=== PATIENT | male | born 1960 | race African-American/Black ===

== ENCOUNTER 2021-05-17 20:49 | Observation (INO) ==
[2021-05-17] MEDS ORDERED: MORPHINE 2 MG/1 ML SYRINGE IV STA (21:19)
[2021-05-17] MEDS ORDERED: ALUM/MAG/SIMETH/LIDO VISC 1:1 30 ML BOTTLE PO STA (21:19)
[2021-05-17] MEDS ORDERED: ONDANSETRON 4 MG/2 ML VIAL IV STA (21:19)
[2021-05-17] MEDS ORDERED: ASPIRIN 325 MG TABLET PO STA (21:19)
[2021-05-17] MEDS ORDERED: NITROGLYCERIN 2% OINT 1 INCH/GM PACK TOP STA (21:19)
[2021-05-17 21:25] LABS: Basophils % 0.5 % (0.0-0.8); Eosinophils # 0.2 10*3/uL (0.0-0.87); Eosinophils % 2.3 % (0.00-10.9); Hematocrit 48.2 VOL% (42.0-52.0); Hemoglobin 15.5 GM/DL (14.0-18.0); Immature Granulocytes % 0.3 %; Immature Granulocytes Absolute 0.02 #; Lymphocytes # 1.2 10*3/uL (1.4-4.0); Lymphocytes % 18.1 % (21.2-54.2); Mean Corpuscular HGB Conc 32.2 GM/DL (32-36); Mean Corpuscular Volume 93.2 FL (87-102); Mean Platelet Volume 9.4 FL (9.6-12.0); Monocytes % 9.9 % (1.7-12.7); Neutrophils % 68.9 % (38.7-73.9); Platelet Count 189 T/CUMM (130-400); Red Blood Count 5.17 MC/CUMM (3.8-5.5); Red Cell Distribution Width 13.5 % (9.3-17.3); White Blood Count 6.5 T/CUMM (4-12)
[2021-05-17 21:38] LABS: INR 0.9; PT Patient Result 10.6 SECS (10.5-12.0)
[2021-05-17] MEDS ORDERED: ENOXAPARIN 100 MG/ML SYRINGE SUBCUT STA (21:51)
[2021-05-17 22:02] LABS: Albumin 3.5 G/DL (3.4-5.0); Bilirubin,Total 0.7 MG/DL (0.20-1.00); Calcium 9.4 MG/DL (8.5-10.1); Osmolality,Calculated 288.1 MOS/KG (273-304); Potassium 4.1 MMOL/L (3.5-5.1); Total Protein 7.2 G/DL (6.4-8.2)
[2021-05-17] MEDS ORDERED: ENOXAPARIN 40 MG/0.4 ML SYRINGE SUBCUT SCH (22:30)
[2021-05-17] MEDS ORDERED: MORPHINE 2 MG/1 ML SYRINGE IV PRN (22:30)
[2021-05-17] MEDS ORDERED: ONDANSETRON 4 MG/2 ML VIAL IV PRN (22:30)
[2021-05-17] MEDS ORDERED: DEXTROSE 50% 25 GM/50 ML SYRINGE IV PRN (22:30)
[2021-05-17] MEDS ORDERED: GLUCAGON 1 MG VIAL IM PRN (22:30)
[2021-05-17] MEDS ORDERED: LACTATED RINGERS 1,000 ML IV SCH (22:30)
[2021-05-18] MEDS ORDERED: INFLUENZA VIRUS VACCINE 0.5 ML SYRINGE IM ONE (02:29)
[2021-05-18 05:54] LABS: Bilirubin,Urine Negative (Negative); Blood, Urine Negative (Negative); Glucose,Urine (UA) Negative (Negative); Ketones,Urine Negative (Negative); Mucus,Urine Few /LPF (Occasional); Nitrite,Urine Negative (Negative); Protein,Urine Negative; RBC,Urine 3 /HPF (0-4); Urine Appearance CLEAR (Clear); Urine Color Yellow (Yellow); Urine Specific Gravity 1.031 (1.001-1.035); Urine Urobilinogen < 2.0 EU/DL (<2.0)
[2021-05-18 05:55] LABS: Basophils % 0.4 % (0.0-0.8); Eosinophils # 0.2 10*3/uL (0.0-0.87); Eosinophils % 4.6 % (0.00-10.9); Hematocrit 47.7 VOL% (42.0-52.0); Hemoglobin 15.4 GM/DL (14.0-18.0); Immature Granulocytes % 0.4 %; Immature Granulocytes Absolute 0.02 #; Lymphocytes # 1.5 10*3/uL (1.4-4.0); Lymphocytes % 32.2 % (21.2-54.2); Mean Corpuscular HGB Conc 32.3 GM/DL (32-36); Mean Corpuscular Volume 94.1 FL (87-102); Mean Platelet Volume 9.5 FL (9.6-12.0); Monocytes % 14.7 % (1.7-12.7); Neutrophils % 47.7 % (38.7-73.9); Platelet Count 174 T/CUMM (130-400); Red Blood Count 5.07 MC/CUMM (3.8-5.5); Red Cell Distribution Width 13.8 % (9.3-17.3); White Blood Count 4.6 T/CUMM (4-12)
[2021-05-18 06:26] LABS: Calcium 8.6 MG/DL (8.5-10.1); Potassium 4.1 MMOL/L (3.5-5.1); Risk Ratio 4.37; VLDL Cholesterol 22.8 MG/DL
[2021-05-18 08:28] LABS: Barbiturates Screen,Urine Negative (Negative); Benzodiazepines Screen,Urine Negative (Negative); Cannabinoid Screen,Urine Positive (Negative); Opiate Screen,Urine Positive (Negative); Phencyclidine Screen,Urine Negative (Negative)
[2021-05-18] MEDS ORDERED: METOPROLOL TARTRATE 25 MG TABLET PO SCH (09:00)
[2021-05-18] MEDS ORDERED: PANTOPRAZOLE 40 MG TABLET PO SCH (09:00)
[2021-05-18] MEDS ORDERED: ASPIRIN EC 81 MG TABLET PO SCH (09:00)
[2021-05-18 12:18] VITALS: BP 107/75
[2021-05-18] MEDS ORDERED: buPROPion SR 150 MG TABLET PO SCH (13:11)
[2021-05-18] MEDS ORDERED: ATORVASTATIN 40 MG TABLET PO SCH (21:00)
[2021-05-21] MEDS ORDERED: buPROPion SR 150 MG TABLET PO SCH (09:00)
== END 2021-05-18 17:46 | disposition home or self-care (01) ==
LOC: N.3E 20:49 → N.ED 20:49 → SUATTDRO 22:30 → N.3E 05-18 00:45
PROVIDERS: ADMIT Emergency Medicine; ATTEND Internal Medicine

== ENCOUNTER 2021-07-15 03:17 | Inpatient (IN) ==
[2021-07-15] MEDS ORDERED: HEPARIN 5,000 UNIT/1 ML VIAL ONE ×3 (03:32→05:06)
[2021-07-15] MEDS ORDERED: NITROGLYCERIN 2% OINT 1 INCH/GM PACK TOP ONE (03:33)
[2021-07-15] MEDS ORDERED: ONDANSETRON 4 MG/2 ML VIAL ONE (03:33)
[2021-07-15] MEDS ORDERED: MORPHINE 2 MG/1 ML SYRINGE ONE (03:34)
[2021-07-15] MEDS ORDERED: LABETALOL 20 MG/4 ML SYRINGE IV ONE (03:35)
[2021-07-15] MEDS ORDERED: ONDANSETRON 4 MG/2 ML VIAL IV STA (03:36)
[2021-07-15] MEDS ORDERED: METOPROLOL TARTRATE 5 MG/5 ML VIAL IV STA (03:36)
[2021-07-15] MEDS ORDERED: MORPHINE 2 MG/1 ML SYRINGE IV STA ×2 (03:36→04:28)
[2021-07-15] MEDS ORDERED: HEPARIN 5,000 UNIT/1 ML VIAL IV ONE (03:36)
[2021-07-15] MEDS ORDERED: NITROGLYCERIN 2% OINT 1 INCH/GM PACK TOP STA (03:36)
[2021-07-15] MEDS ORDERED: ASPIRIN 325 MG TABLET PO STA (03:36)
[2021-07-15 03:48] LABS: Basophils % 0.6 % (0.0-0.8); Eosinophils # 0.3 10*3/uL (0.0-0.87); Hematocrit 49.1 VOL% (42.0-52.0); Immature Granulocytes % 0.3 %; Immature Granulocytes Absolute 0.02 #; Lymphocytes # 2.5 10*3/uL (1.4-4.0); Lymphocytes % 35.7 % (21.2-54.2); Mean Corpuscular HGB Conc 32.6 GM/DL (32-36); Mean Corpuscular Volume 92.3 FL (87-102); Mean Platelet Volume 9.2 FL (9.6-12.0); Monocytes % 9.4 % (1.7-12.7); Platelet Count 224 T/CUMM (130-400); Red Blood Count 5.32 MC/CUMM (3.8-5.5); Red Cell Distribution Width 13.6 % (9.3-17.3)
[2021-07-15 04:00] LABS: INR 0.9; PT Patient Result 10.5 SECS (10.5-12.0)
[2021-07-15 04:09] LABS: Alanine Aminotransferase 32 U/L (16-61); Albumin 3.7 G/DL (3.4-5.0); Alkaline Phosphatase 75 U/L (45-117); Aspartate Amino Transferase 16 U/L (0-37); Bilirubin,Total < 0.39 MG/DL (0.20-1.00); Blood Urea Nitrogen 21 MG/DL (7-18); Calcium 9.5 MG/DL (8.5-10.1); Carbon Dioxide 25 MMOL/L (21-32); Estimated Glom Filtration Rate 114 ML/MIN; Glucose 139 MG/DL (74-106); Osmolality,Calculated 279.7 MOS/KG (273-304); Sodium 138 MMOL/L (136-145); Total Protein 7.6 G/DL (6.4-8.2)
[2021-07-15] MEDS ORDERED: HEPARIN/NACL 0.9% 2 UNITS/ML 2,000 UNIT/1,000 ML BAG IV ONE (04:23)
[2021-07-15] MEDS ORDERED: LIDOCAINE 1% 20 ML VIAL ONE (04:23)
[2021-07-15] MEDS ORDERED: LABETALOL 20 MG/4 ML SYRINGE IV STA (04:27)
[2021-07-15] MEDS ORDERED: hydrALAZINE 20 MG/1 ML VIAL ONE (04:33)
[2021-07-15] MEDS ORDERED: ETOMIDATE 20 MG/10 ML VIAL IV ONE (04:58)
[2021-07-15] MEDS ORDERED: VECURONIUM 10 MG VIAL IV ONE ×3 (04:59→18:40)
[2021-07-15] MEDS ORDERED: FUROSEMIDE 40 MG/4 ML VIAL ONE (05:02)
[2021-07-15] MEDS ORDERED: fentaNYL 100 MCG/2 ML VIAL ONE (05:18)
[2021-07-15] MEDS ORDERED: MIDAZOLAM 2 MG/2 ML VIAL ONE (05:18)
[2021-07-15] MEDS ORDERED: SODIUM CHLORIDE 0.9% 1,000 ML IV PRN ×2 (05:25→17:30)
[2021-07-15] MEDS ORDERED: FUROSEMIDE INJ 200 MG in SODIUM CHLORIDE 0.9% 80 ML IV SCH (05:30)
[2021-07-15] MEDS ORDERED: MAGNESIUM SULF RIDER 4 GM/100 ML PREMIX IV PRN ×2 (05:31→15:16)
[2021-07-15] MEDS ORDERED: MAGNESIUM SULF RIDER 2 GM/50 ML PREMIX IV PRN ×2 (05:31→15:16)
[2021-07-15 05:35] LABS: ABG Base Excess -0.4 MMOL/L (-2.5-2.5); ABG Oxygen Saturation 93.5 % (95-100); ABG PCO2 38.8 MM HG (35-48); ABG PH 7.409 (7.35-7.45); ABG PO2 67.4 MM HG (80-95); ABG TCO2 25.2 MMOL/L (23-27)
[2021-07-15] MEDS ORDERED: HEPARIN DRIP 25,000 UNITS/500 ML PREMIX IV PRN (05:36)
[2021-07-15 05:37] LABS: Basophils % 0.3 % (0.0-0.8); Eosinophils # 0.1 10*3/uL (0.0-0.87); Hematocrit 47.4 VOL% (42.0-52.0); Hemoglobin 15.5 GM/DL (14.0-18.0); Immature Granulocytes % 0.6 %; Immature Granulocytes Absolute 0.05 #; Lymphocytes % 11.4 % (21.2-54.2); Mean Corpuscular HGB Conc 32.7 GM/DL (32-36); Mean Corpuscular Volume 92.8 FL (87-102); Mean Platelet Volume 9.5 FL (9.6-12.0); Monocytes % 2.2 % (1.7-12.7); Neutrophils % 84.5 % (38.7-73.9); Platelet Count 213 T/CUMM (130-400); Red Blood Count 5.11 MC/CUMM (3.8-5.5); Red Cell Distribution Width 13.5 % (9.3-17.3); White Blood Count 8.6 T/CUMM (4-12)
[2021-07-15] MEDS ORDERED: NITROGLYCERIN DRIP 50 MG/250 ML BOTTLE IV PRN (05:38)
[2021-07-15] MEDS ORDERED: hydrALAZINE 20 MG/1 ML VIAL IV PRN (05:41)
[2021-07-15] MEDS ORDERED: HYDROmorphone 2 MG/1 ML VIAL ONE (05:41)
[2021-07-15 05:55] LABS: Albumin 3.2 G/DL (3.4-5.0); Bilirubin,Total 0.5 MG/DL (0.20-1.00); Calcium 8.7 MG/DL (8.5-10.1); Potassium 3.8 MMOL/L (3.5-5.1); Total Protein 7.1 G/DL (6.4-8.2)
[2021-07-15] MEDS ORDERED: HEPARIN DRIP 25,000 UNITS/500 ML PREMIX IV SCH (06:00)
[2021-07-15] MEDS: HEPARIN/NACL 0.9% 2 UNITS/ML 1,000 UNIT/500 ML BAG IV SCH ×2 (07:00→08:08)
[2021-07-15] MEDS: INSULIN REGULAR 100 UNIT/ML SUBCUT SCH ×2 (07:39→13:52)
[2021-07-15] MEDS: METOPROLOL TARTRATE 5 MG/5 ML VIAL IV SCH ×2 (07:53→13:52)
[2021-07-15 08:05] LABS: PT Patient Result 11.2 SECS (10.5-12.0); Partial Thromboplastin Time 53.4 SECS (23.8-32.1)
[2021-07-15] MEDS ORDERED: MIDAZOLAM 100 MG in SODIUM CHLORIDE 0.9% 80 ML IV PRN (08:30)
[2021-07-15] MEDS ORDERED: AMINOCAPROIC ACID 5,000 MG/20 ML VIAL ONE (08:52)
[2021-07-15] MEDS ORDERED: MIDAZOLAM 10 MG/2 ML VIAL ONE ×5 (08:56→18:40)
[2021-07-15] MEDS ORDERED: SUFentanil 250 MCG/5 ML AMP ONE ×4 (08:57→19:18)
[2021-07-15] MEDS ORDERED: PHENYLEPHRINE DRIP 20 MG/250 ML PREMIX IV ONE (08:58)
[2021-07-15] MEDS ORDERED: HEPARIN/NACL 0.9% 2 UNITS/ML 1,000 UNIT/500 ML BAG IV ONE (08:58)
[2021-07-15] MEDS ORDERED: DEXTROSE 5% IV SCH (09:00)
[2021-07-15] MEDS ORDERED: HEPARIN IV SCH (09:00)
[2021-07-15] MEDS ORDERED: METOPROLOL TARTRATE 25 MG TABLET PO SCH (09:00)
[2021-07-15] MEDS ORDERED: PANTOPRAZOLE 40 MG VIAL IV SCH (09:00)
[2021-07-15] MEDS ORDERED: SODIUM CHLORIDE 0.9% 250 ML IV ONE ×3 (09:30→13:07)
[2021-07-15] MEDS ORDERED: SODIUM CHLORIDE 0.9% 100 ML IV ONE ×2 (09:30→14:43)
[2021-07-15] MEDS ORDERED: SODIUM CHLORIDE 0.9% 1,000 ML IV ONE ×2 (09:30→20:12)
[2021-07-15] MEDS ORDERED: LACTATED RINGERS 1,000 ML IV ONE ×2 (09:30→20:12)
[2021-07-15] MEDS ORDERED: LIDOCAINE 2% 5 ML VIAL ONE ×2 (09:30→15:12)
[2021-07-15] MEDS ORDERED: lisinopriL 10 MG TABLET PO ONE (09:46)
[2021-07-15] MEDS ORDERED: ROSUVASTATIN 20 MG TABLET NG SCH (09:48)
[2021-07-15] MEDS ORDERED: NITROPRUSSIDE 100 MG in DEXTROSE 5% 250 ML IV PRN ×2 (10:24→15:16)
[2021-07-15] MEDS ORDERED: MORPHINE 4 MG/1 ML VIAL IV PRN (10:27)
[2021-07-15] MEDS ORDERED: NITROPRUSSIDE 50 MG/2 ML VIAL ONE ×2 (10:29→12:16)
[2021-07-15] MEDS ORDERED: PAPAVERINE 60 MG/2 ML VIAL ONE (10:36)
[2021-07-15] MEDS ORDERED: VANCOMYCIN 1,000 MG VIAL ONE ×3 (10:37→19:43)
[2021-07-15] MEDS ORDERED: VANCOMYCIN 500 MG VIAL ONE (10:37)
[2021-07-15] MEDS ORDERED: CEFUROXIME INJ 1,500 MG in SODIUM CHLORIDE 0.9% 100 ML IV ONE (10:48)
[2021-07-15] MEDS ORDERED: POTASSIUM CHLORIDE RIDER 20 MEQ/100 ML PREMIX IV ONE (12:39)
[2021-07-15] MEDS ORDERED: SODIUM BICARBONATE 50 MEQ/50 ML VIAL IV ONE ×2 (12:39→15:13)
[2021-07-15] MEDS ORDERED: CALCIUM CHLORIDE 1,000 MG/10 ML SYRINGE IV ONE (12:40)
[2021-07-15] MEDS ORDERED: PHENYLEPHRINE DRIP 40 MG/250 ML PREMIX IV ONE (12:40)
[2021-07-15 12:43] LABS: ABG Base Excess 0.7 MMOL/L (-2.5-2.5); ABG HCO3 25.2 MMOL/L (20-26); ABG PCO2 40.1 MM HG (35-48); ABG PH 7.416 (7.35-7.45); ABG PO2 91.7 MM HG (80-95); ABG TCO2 26.4 MMOL/L (23-27); Glucose Heart Surgery 111 MG/DL (74-106); Hemoglobin Heart Surgery 14.7 G/DL (14.0-18.0); PCO2 Patient Temp Arterial 40.1 MMHG; PH Patient Temp Arterial 7.416; PO2 Patient Temp Arterial 91.7 MM HG; Patient Temperature 37 CELCIUS; Potassium Heart/CVR 3.3 MMOL/L (3.5-5.1); Sodium Heart/CVR 142 MMOL/L (135-145)
[2021-07-15 13:40] LABS: Hemoglobin Heart Surgery 9.7 G/DL (14.0-18.0); PCO2 Patient Temp Venous 40.4 MM HG; PH Patient Temp Venous 7.416; Potassium Heart/CVR 4.3 MMOL/L (3.5-5.1); VBG Base Excess 0.8 MEQ/L (0-4); VBG HCO3 25.4 MEQ/L (24-28); VBG Oxygen Saturation 82.4 %; VBG PCO2 40.4 MMHG (41-51); VBG PH 7.416; VBG Total CO2 26.6 MMOL/L
[2021-07-15] MEDS ORDERED: niCARdipine 25 MG/10 ML VIAL IV ONE (13:46)
[2021-07-15 14:23] LABS: Hemoglobin Heart Surgery 9.6 G/DL (14.0-18.0); PCO2 Patient Temp Venous 33.7 MM HG; PH Patient Temp Venous 7.455; Potassium Heart/CVR 4.2 MMOL/L (3.5-5.1); VBG Base Excess -0.6 MEQ/L (0-4); VBG HCO3 23.6 MEQ/L (24-28); VBG Oxygen Saturation 78.9 %; VBG PCO2 36.8 MMHG (41-51); VBG PH 7.425; VBG PO2 41.5 MMHG (17-40); VBG Total CO2 24.7 MMOL/L
[2021-07-15] MEDS ORDERED: SEVOFLURANE 1 UNIT/15 MINUTE INH ONE ×4 (14:43→20:11)
[2021-07-15] MEDS ORDERED: CHLORHEXIDINE 4% SOLN 118 ML BOTTLE TOP SCH (15:00)
[2021-07-15 15:06] LABS: ABG Base Excess -1.5 MMOL/L (-2.5-2.5); ABG HCO3 22.9 MMOL/L (20-26); ABG Oxygen Saturation 98.9 % (95-100); ABG PCO2 37.8 MM HG (35-48); ABG PH 7.401 (7.35-7.45); ABG PO2 217.6 MM HG (80-95); ABG TCO2 24.1 MMOL/L (23-27); Glucose Heart Surgery 185 MG/DL (74-106); Hemoglobin Heart Surgery 11.6 G/DL (14.0-18.0); PCO2 Patient Temp Arterial 37.8 MMHG; PH Patient Temp Arterial 7.401; PO2 Patient Temp Arterial 217.6 MM HG; Patient Temperature 37 CELCIUS; Potassium Heart/CVR 3.3 MMOL/L (3.5-5.1); Sodium Heart/CVR 135 MMOL/L (135-145)
[2021-07-15] MEDS ORDERED: MANNITOL 100 GM/500 ML BAG IV ONE (15:12)
[2021-07-15] MEDS ORDERED: methylPREDNISolone SOD SUC 1,000 MG/8 ML VIAL ONE (15:12)
[2021-07-15] MEDS ORDERED: ALBUMIN 25% 25 GM/100 ML VIAL IV ONE (15:12)
[2021-07-15] MEDS ORDERED: DEXTROSE 5% KCL 20 MEQ 20 MEQ/1,000 ML BAG IV ONE (15:12)
[2021-07-15] MEDS ORDERED: MAGNESIUM SULFATE 5 GM/10 ML VIAL IV ONE (15:12)
[2021-07-15] MEDS ORDERED: PROTAMINE SULFATE 50 MG/5 ML VIAL IV ONE ×3 (15:13→16:02)
[2021-07-15] MEDS ORDERED: FUROSEMIDE 20 MG/2 ML VIAL ONE (15:13)
[2021-07-15] MEDS ORDERED: HEPARIN 10,000 UNIT/10 ML VIAL ONE (15:13)
[2021-07-15] MEDS ORDERED: PROTAMINE SULFATE 250 MG/25 ML VIAL IV ONE (15:13)
[2021-07-15] MEDS ORDERED: THROMBIN TOPICAL (RECOMBINANT) 5,000 UNIT VIAL TOP ONE (15:14)
[2021-07-15] MEDS ORDERED: INSULIN REGULAR 100 UNIT/ML IV ONE (15:16)
[2021-07-15] MEDS ORDERED: ONDANSETRON 4 MG/2 ML VIAL IV PRN (15:16)
[2021-07-15] MEDS ORDERED: ACETAMINOPHEN 650 MG SUPP RECTAL PRN (15:16)
[2021-07-15] MEDS ORDERED: MIDAZOLAM 2 MG/2 ML VIAL IV PRN (15:16)
[2021-07-15] MEDS ORDERED: MIDAZOLAM 10 MG/2 ML VIAL IV PRN (15:16)
[2021-07-15] MEDS ORDERED: CALCIUM CHLORIDE 1,000 MG/10 ML SYRINGE IV PRN (15:16)
[2021-07-15] MEDS ORDERED: INSULIN REGULAR 100 UNIT/ML IV PRN (15:16)
[2021-07-15] MEDS ORDERED: CHLORHEXIDINE 4% SOLN 118 ML BOTTLE TOP PRN (15:16)
[2021-07-15] MEDS ORDERED: POTASSIUM CHLORIDE RIDER 10 MEQ/100 ML PREMIX IV PRN (15:16)
[2021-07-15] MEDS ORDERED: PHENYLEPHRINE DRIP 40 MG/250 ML PREMIX IV PRN (15:16)
[2021-07-15] MEDS ORDERED: VECURONIUM 10 MG VIAL IV PRN ×2 (15:16)
[2021-07-15] MEDS ORDERED: DEXTROSE 10% 250 ML BAG IV PRN ×2 (15:16)
[2021-07-15] MEDS: SODIUM CHLORIDE 0.45% 1,000 ML IV SCH ×2 (15:52)
[2021-07-15] MEDS ORDERED: CALCIUM CHLORIDE 1,000 MG/10 ML VIAL IV ONE (16:00)
[2021-07-15 16:22] LABS: ABG Base Excess -1.2 MMOL/L (-2.5-2.5); ABG HCO3 23.7 MMOL/L (20-26); ABG Oxygen Saturation 97.1 % (95-100); ABG PCO2 40.4 MM HG (35-48); ABG PH 7.387 (7.35-7.45); Glucose Heart Surgery 130 MG/DL (74-106); Hemoglobin Heart Surgery 11.6 G/DL (14.0-18.0); Potassium Heart/CVR 3.4 MMOL/L (3.5-5.1)
[2021-07-15] MEDS: ALBUMIN 5% 12.5 GM/250 ML VIAL IV PRN ×2 (16:28→17:27)
[2021-07-15 16:31] LABS: Basophils % 0.2 % (0.0-0.8); Eosinophils % 0.3 % (0.00-10.9); Hematocrit 33.5 VOL% (42.0-52.0); Hemoglobin 11.1 GM/DL (14.0-18.0); Immature Granulocytes % 0.6 %; Immature Granulocytes Absolute 0.07 #; Lymphocytes # 0.5 10*3/uL (1.4-4.0); Lymphocytes % 3.9 % (21.2-54.2); Mean Corpuscular HGB Conc 33.1 GM/DL (32-36); Mean Corpuscular Volume 93.1 FL (87-102); Mean Platelet Volume 9.4 FL (9.6-12.0); Monocytes % 5.4 % (1.7-12.7); Neutrophils % 89.6 % (38.7-73.9); Platelet Count 139 T/CUMM (130-400); Red Cell Distribution Width 13.7 % (9.3-17.3); White Blood Count 12.1 T/CUMM (4-12)
[2021-07-15] MEDS: INSULIN REGULAR DRIP 100 ML IV SCH (16:42)
[2021-07-15 16:48] LABS: INR 1.2
[2021-07-15 16:51] LABS: Albumin 2.7 G/DL (3.4-5.0); Calcium 7.9 MG/DL (8.5-10.1); Osmolality,Calculated 282.5 MOS/KG (273-304); Potassium 3.5 MMOL/L (3.5-5.1); Total Protein 5.3 G/DL (6.4-8.2)
[2021-07-15] MEDS: POTASSIUM CHLORIDE RIDER 20 MEQ/100 ML PREMIX IV PRN ×2 (17:12→17:43)
[2021-07-15 17:18] LABS: Band Neutrophils 2 % (0-10); Eosinophils 1 % (0-10); Hypochromia Slight; Lymphocytes 4 % (20-55); Platelet Estimate Normal; Segmented Neutrophils 92 % (50-85); Total Cells Counted 100
[2021-07-15] MEDS: LACTATED RINGERS 250 ML IV PRN ×5 (17:22→18:55)
[2021-07-15 17:26] LABS: ABG Base Excess 1.3 MMOL/L (-2.5-2.5); ABG Oxygen Saturation 98.1 % (95-100); ABG PCO2 41.6 MM HG (35-48); ABG PH 7.414 (7.35-7.45); ABG PO2 125.5 MM HG (80-95); ABG TCO2 27.3 MMOL/L (23-27); Glucose Heart Surgery 152 MG/DL (74-106); Hemoglobin Heart Surgery 10.5 G/DL (14.0-18.0); Potassium Heart/CVR 3.8 MMOL/L (3.5-5.1)
[2021-07-15 17:28] LABS: CKMB % 9.8 %
[2021-07-15 17:43] LABS: High Sensitive Troponin I* > 125000 ng/L (0-78)
[2021-07-15 19:28] LABS: ABG Base Excess 2.7 MMOL/L (-2.5-2.5); ABG Oxygen Saturation 99.1 % (95-100); ABG PCO2 40.1 MM HG (35-48); ABG PH 7.446 (7.35-7.45); ABG PO2 420.7 MM HG (80-95); ABG TCO2 28.2 MMOL/L (23-27); Glucose Heart Surgery 184 MG/DL (74-106); Hemoglobin Heart Surgery 8.6 G/DL (14.0-18.0); Potassium Heart/CVR 3.8 MMOL/L (3.5-5.1); Sodium Heart/CVR 140 MMOL/L (135-145)
[2021-07-15 19:30] LABS: Patient Temperature 37 CELCIUS
[2021-07-15] MEDS ORDERED: DESMOPRESSIN 4 MCG/1 ML AMP IV ONE (19:44)
[2021-07-15] MEDS ORDERED: DESMOPRESSIN IV ONE (20:00)
[2021-07-15] MEDS ORDERED: SODIUM CHLORIDE 0.9% IV ONE (20:00)
[2021-07-15] MEDS ORDERED: NITROGLYCERIN DRIP 50 MG/250 ML BOTTLE IV ONE (20:12)
[2021-07-15] MEDS ORDERED: PHENYLEPHRINE 1 MG/10 ML SYRINGE IV ONE (20:12)
[2021-07-15 20:49] LABS: ABG Base Excess 0.3 MMOL/L (-2.5-2.5); ABG HCO3 25.1 MMOL/L (20-26); ABG Oxygen Saturation 92.5 % (95-100); ABG PH 7.404 (7.35-7.45); ABG PO2 65.1 MM HG (80-95); ABG TCO2 26.3 MMOL/L (23-27); Glucose Heart Surgery 182 MG/DL (74-106); Hemoglobin Heart Surgery 9.3 G/DL (14.0-18.0); Potassium Heart/CVR 3.9 MMOL/L (3.5-5.1)
[2021-07-15 21:25] LABS: Calcium 7.9 MG/DL (8.5-10.1); Osmolality,Calculated 295.7 MOS/KG (273-304)
[2021-07-15 21:27] LABS: Basophils % 0.1 % (0.0-0.8); Hematocrit 27.7 VOL% (42.0-52.0); Immature Granulocytes % 0.5 %; Immature Granulocytes Absolute 0.08 #; Lymphocytes # 0.4 10*3/uL (1.4-4.0); Lymphocytes % 2.7 % (21.2-54.2); Mean Corpuscular HGB Conc 32.5 GM/DL (32-36); Mean Corpuscular Volume 93.9 FL (87-102); Mean Platelet Volume 9.6 FL (9.6-12.0); Monocytes % 3.4 % (1.7-12.7); Neutrophils % 93.3 % (38.7-73.9); Platelet Count 129 T/CUMM (130-400); Red Blood Count 2.95 MC/CUMM (3.8-5.5); Red Cell Distribution Width 13.9 % (9.3-17.3); White Blood Count 14.6 T/CUMM (4-12)
[2021-07-15 21:51] LABS: CKMB % 6.1 %; High Sensitive Troponin I* > 125000 ng/L (0-78)
[2021-07-15] MEDS: CHLORHEXIDINE 0.12% ORAL RINSE 60 ML BOTTLE SWISH/SPIT SCH (22:12)
[2021-07-15] MEDS: MORPHINE 10 MG/1 ML VIAL IV PRN (23:07)
[2021-07-16] MEDS: CEFUROXIME INJ 1,500 MG in SODIUM CHLORIDE 0.9% 100 ML IV SCH ×3 (00:26→23:13)
[2021-07-16 01:41] LABS: ABG Base Excess -0.8 MMOL/L (-2.5-2.5); ABG HCO3 24.5 MMOL/L (20-26); ABG Oxygen Saturation 98.6 % (95-100); ABG PCO2 43.6 MM HG (35-48); ABG PH 7.368 (7.35-7.45); ABG PO2 225.4 MM HG (80-95); ABG TCO2 25.9 MMOL/L (23-27); Glucose Heart Surgery 178 MG/DL (74-106); Potassium Heart/CVR 4.1 MMOL/L (3.5-5.1)
[2021-07-16 05:20] LABS: ABG Base Excess -0.5 MMOL/L (-2.5-2.5); ABG HCO3 24.2 MMOL/L (20-26); ABG PCO2 39.9 MM HG (35-48); ABG TCO2 25.4 MMOL/L (23-27); Glucose Heart Surgery 159 MG/DL (74-106); Hemoglobin Heart Surgery 10.8 G/DL (14.0-18.0); Potassium Heart/CVR 3.9 MMOL/L (3.5-5.1)
[2021-07-16 05:22] LABS: Basophils % 0.1 % (0.0-0.8); Hematocrit 31.3 VOL% (42.0-52.0); Hemoglobin 10.4 GM/DL (14.0-18.0); Immature Granulocytes % 0.3 %; Immature Granulocytes Absolute 0.05 #; Lymphocytes # 0.7 10*3/uL (1.4-4.0); Lymphocytes % 4.6 % (21.2-54.2); Mean Corpuscular HGB Conc 33.2 GM/DL (32-36); Mean Corpuscular Volume 92.1 FL (87-102); Mean Platelet Volume 9.7 FL (9.6-12.0); Monocytes % 3.9 % (1.7-12.7); Neutrophils % 91.1 % (38.7-73.9); Platelet Count 110 T/CUMM (130-400); Red Cell Distribution Width 15.4 % (9.3-17.3); White Blood Count 14.3 T/CUMM (4-12)
[2021-07-16 05:48] LABS: Albumin 2.7 G/DL (3.4-5.0); Bilirubin,Direct 0.2 MG/DL (0.0-0.20); Bilirubin,Total 0.8 MG/DL (0.20-1.00); Calcium 7.7 MG/DL (8.5-10.1); Osmolality,Calculated 294.7 MOS/KG (273-304); Potassium 4.1 MMOL/L (3.5-5.1); Total Protein 5.4 G/DL (6.4-8.2)
[2021-07-16] MEDS: POTASSIUM CHLORIDE RIDER 20 MEQ/100 ML PREMIX IV PRN ×2 (05:49→11:00)
[2021-07-16 05:53] LABS: Band Neutrophils 1 % (0-10); Hypochromia Slight; Lymphocytes 5 % (20-55); Microcytosis Slight; Platelet Estimate Decreased; Segmented Neutrophils 92 % (50-85); Total Cells Counted 100
[2021-07-16 08:23] LABS: CKMB % 4.1 %; High Sensitive Troponin I* 65610.7 ng/L (0-78)
[2021-07-16] MEDS: MORPHINE 10 MG/1 ML VIAL IV PRN ×2 (08:52→15:54)
[2021-07-16] MEDS ORDERED: PANTOPRAZOLE 40 MG VIAL IV ONE (09:00)
[2021-07-16] MEDS ORDERED: ASPIRIN CHEW 81 MG TABLET PO SCH (09:00)
[2021-07-16] MEDS ORDERED: CHLORHEXIDINE 0.12% ORAL RINSE 60 ML BOTTLE SWISH/SPIT SCH (09:00)
[2021-07-16] MEDS: CHLORHEXIDINE 0.12% ORAL RINSE 60 ML BOTTLE SWISH/SPIT SCH ×2 (09:17→21:52)
[2021-07-16 09:44] LABS: ABG Base Excess -0.7 MMOL/L (-2.5-2.5); ABG HCO3 23.6 MMOL/L (20-26); ABG Oxygen Saturation 96.7 % (95-100); ABG PCO2 37.8 MM HG (35-48); ABG PH 7.414 (7.35-7.45); ABG TCO2 24.8 MMOL/L (23-27); Glucose Heart Surgery 140 MG/DL (74-106); Hemoglobin Heart Surgery 10.6 G/DL (14.0-18.0); Potassium Heart/CVR 3.9 MMOL/L (3.5-5.1)
[2021-07-16] MEDS ORDERED: METOPROLOL TARTRATE 5 MG/5 ML VIAL IV ONE (09:57)
[2021-07-16 10:48] LABS: CKMB % 3.9 %; High Sensitive Troponin I* 44013.8 ng/L (0-78)
[2021-07-16] MEDS ORDERED: DEXMEDETOMIDINE 400 MCG in SODIUM CHLORIDE 0.9% 46 ML IV PRN (11:00)
[2021-07-16] MEDS ORDERED: METOPROLOL TARTRATE 25 MG TABLET PO ONE (11:07)
[2021-07-16 11:32] LABS: ABG Base Excess -0.9 MMOL/L (-2.5-2.5); ABG Oxygen Saturation 94.8 % (95-100); ABG PCO2 35.6 MM HG (35-48); ABG PH 7.429 (7.35-7.45); ABG PO2 74.4 MM HG (80-95); ABG TCO2 24.1 MMOL/L (23-27); Glucose Heart Surgery 146 MG/DL (74-106)
[2021-07-16] MEDS ORDERED: ROSUVASTATIN 20 MG TABLET NG SCH (13:26)
[2021-07-16 13:48] LABS: ABG Base Excess -0.7 MMOL/L (-2.5-2.5); ABG Oxygen Saturation 95.9 % (95-100); ABG PCO2 34.7 MM HG (35-48); ABG PO2 82.4 MM HG (80-95); ABG TCO2 24.1 MMOL/L (23-27); Glucose Heart Surgery 137 MG/DL (74-106); Hemoglobin Heart Surgery 10.7 G/DL (14.0-18.0); Potassium Heart/CVR 4.1 MMOL/L (3.5-5.1)
[2021-07-16] MEDS: oxyCODONE/ACETAMINOPHEN 5-325 MG TABLET PO PRN (14:22)
[2021-07-16] MEDS: INSULIN REGULAR DRIP 100 ML IV SCH (16:06)
[2021-07-16] MEDS: SODIUM CHLORIDE 0.45% 1,000 ML IV SCH ×2 (16:06→16:07)
[2021-07-16 16:17] LABS: CKMB % 3.2 %
[2021-07-16 16:19] LABS: High Sensitive Troponin I* 20499.7 ng/L (0-78)
[2021-07-16] MEDS ORDERED: METOPROLOL TARTRATE 25 MG TABLET PO SCH (18:00)
[2021-07-16] MEDS ORDERED: ASCORBIC ACID 500 MG TABLET NG SCH (21:00)
[2021-07-17] MEDS: MORPHINE 10 MG/1 ML VIAL IV PRN ×2 (02:14→06:13)
[2021-07-17 03:51] LABS: Basophils % 0.1 % (0.0-0.8); Hematocrit 29.7 VOL% (42.0-52.0); Hemoglobin 9.9 GM/DL (14.0-18.0); Immature Granulocytes % 0.7 %; Immature Granulocytes Absolute 0.15 #; Lymphocytes # 1.3 10*3/uL (1.4-4.0); Lymphocytes % 6.4 % (21.2-54.2); Mean Corpuscular HGB Conc 33.3 GM/DL (32-36); Mean Platelet Volume 10.7 FL (9.6-12.0); Monocytes % 6.3 % (1.7-12.7); Neutrophils % 86.5 % (38.7-73.9); Platelet Count 125 T/CUMM (130-400); Red Blood Count 3.23 MC/CUMM (3.8-5.5); Red Cell Distribution Width 15.7 % (9.3-17.3); White Blood Count 20.4 T/CUMM (4-12)
[2021-07-17 04:18] LABS: Alanine Aminotransferase 66 U/L (16-61); Albumin 2.7 G/DL (3.4-5.0); Alkaline Phosphatase 47 U/L (45-117); Aspartate Amino Transferase 129 U/L (0-37); Bilirubin,Direct < 0.100 MG/DL (0.0-0.20); Blood Urea Nitrogen 20 MG/DL (7-18); Calcium 8.3 MG/DL (8.5-10.1); Carbon Dioxide 23 MMOL/L (21-32); Estimated Glom Filtration Rate 131 ML/MIN; Glucose 139 MG/DL (74-106); Osmolality,Calculated 279.7 MOS/KG (273-304); Potassium 4.1 MMOL/L (3.5-5.1); Sodium 138 MMOL/L (136-145); Total Protein 5.9 G/DL (6.4-8.2)
[2021-07-17 04:29] LABS: Band Neutrophils 1 % (0-10); Hypochromia 1+; Lymphocytes 4 % (20-55); Microcytosis 1+; Segmented Neutrophils 90 % (50-85); Total Cells Counted 100
[2021-07-17] MEDS ORDERED: ZALEPLON 5 MG CAPSULE PO PRN (08:28)
[2021-07-17] MEDS ORDERED: MAGNESIUM HYDROXIDE SUSP 30 ML UDCUP PO PRN (08:28)
[2021-07-17] MEDS ORDERED: ONDANSETRON 4 MG/2 ML VIAL IV PRN (08:28)
[2021-07-17] MEDS ORDERED: GLUCAGON 1 MG VIAL IM PRN (08:28)
[2021-07-17] MEDS ORDERED: MAGNESIUM SULF RIDER 2 GM/50 ML PREMIX IV PRN (08:28)
[2021-07-17] MEDS ORDERED: ALUMINUM/MAGNES/SIMETH MAX STR 30 ML UDCUP PO PRN (08:28)
[2021-07-17] MEDS ORDERED: ACETAMINOPHEN 325 MG TABLET PO PRN (08:28)
[2021-07-17] MEDS ORDERED: DEXTROSE 10% 250 ML BAG IV PRN (08:28)
[2021-07-17] MEDS ORDERED: MAGNESIUM SULF RIDER 4 GM/100 ML PREMIX IV PRN (08:28)
[2021-07-17] MEDS: ASPIRIN EC 81 MG TABLET PO SCH (09:06)
[2021-07-17] MEDS: ASCORBIC ACID 500 MG TABLET PO SCH ×2 (09:07→20:51)
[2021-07-17] MEDS: DOCUSATE SODIUM 100 MG CAPSULE PO SCH (09:07)
[2021-07-17] MEDS: FERROUS SULFATE 325 MG TABLET PO SCH (09:07)
[2021-07-17] MEDS: PANTOPRAZOLE 40 MG TABLET PO SCH (09:07)
[2021-07-17] MEDS: ROSUVASTATIN 20 MG TABLET PO SCH (09:07)
[2021-07-17] MEDS: CHLORHEXIDINE 0.12% ORAL RINSE 60 ML BOTTLE SWISH/SPIT SCH ×2 (09:07→20:52)
[2021-07-17] MEDS ORDERED: DILTIAZEM 50 MG/10 ML VIAL IV ONE (09:11)
[2021-07-17] MEDS: DILTIAZEM INJ 100 MG in SODIUM CHLORIDE 0.9% 100 ML IV SCH (09:43)
[2021-07-17] MEDS ORDERED: AMIODARONE INJ 100 MG in DEXTROSE 5% 100 ML IV ONE (11:21)
[2021-07-17] MEDS ORDERED: AMIODARONE INJ 450 MG in DEXTROSE 5% 241 ML IV SCH (11:30)
[2021-07-17] MEDS: METOPROLOL TARTRATE 5 MG/5 ML VIAL IV SCH ×3 (13:25→13:50)
[2021-07-17] MEDS: oxyCODONE/ACETAMINOPHEN 5-325 MG TABLET PO PRN (16:48)
[2021-07-17] MEDS: METOPROLOL TARTRATE 25 MG TABLET PO SCH (20:51)
[2021-07-17] MEDS: AMIODARONE INJ 450 MG in DEXTROSE 5% 241 ML IV SCH (22:56)
[2021-07-18] MEDS: oxyCODONE/ACETAMINOPHEN 5-325 MG TABLET PO PRN ×3 (01:22→10:00)
[2021-07-18] MEDS: DILTIAZEM INJ 100 MG in SODIUM CHLORIDE 0.9% 100 ML IV SCH ×2 (03:20→10:01)
[2021-07-18] MEDS ORDERED: FUROSEMIDE 40 MG/4 ML VIAL IV ONE (06:00)
[2021-07-18 06:43] LABS: Basophils % 0.1 % (0.0-0.8); Hematocrit 30.2 VOL% (42.0-52.0); Hemoglobin 9.6 GM/DL (14.0-18.0); Immature Granulocytes % 0.9 %; Immature Granulocytes Absolute 0.18 #; Lymphocytes # 2.4 10*3/uL (1.4-4.0); Lymphocytes % 11.8 % (21.2-54.2); Mean Corpuscular HGB Conc 31.8 GM/DL (32-36); Mean Corpuscular Volume 94.4 FL (87-102); Mean Platelet Volume 10.5 FL (9.6-12.0); Monocytes % 7.2 % (1.7-12.7); NRBC # 0.02 10*3/uL; Platelet Count 137 T/CUMM (130-400); Red Cell Distribution Width 15.2 % (9.3-17.3); White Blood Count 20.1 T/CUMM (4-12)
[2021-07-18 07:15] LABS: Band Neutrophils 2 % (0-10); Lymphocytes 8 % (20-55); Platelet Estimate Normal; Segmented Neutrophils 83 % (50-85); Total Cells Counted 100
[2021-07-18 07:16] LABS: Hypochromia Slight
[2021-07-18 07:22] LABS: Albumin 2.6 G/DL (3.4-5.0); Bilirubin,Total 0.5 MG/DL (0.20-1.00); Calcium 8.3 MG/DL (8.5-10.1); Osmolality,Calculated 274.1 MOS/KG (273-304); Total Protein 5.9 G/DL (6.4-8.2)
[2021-07-18 07:30] LABS: Bilirubin,Direct 0.16 MG/DL (0.0-0.20); Bilirubin,Indirect 0.3 MG/DL (0.0-1.0); Bilirubin,Total 0.5 MG/DL (0.20-1.00); CKMB % 1.7 %; High Sensitive Troponin I* 9835.6 ng/L (0-78)
[2021-07-18] MEDS: APIXABAN 5 MG TABLET PO SCH ×2 (09:53→21:14)
[2021-07-18] MEDS: DOCUSATE SODIUM 100 MG CAPSULE PO SCH (09:53)
[2021-07-18] MEDS: PANTOPRAZOLE 40 MG TABLET PO SCH (09:53)
[2021-07-18] MEDS: ASPIRIN EC 81 MG TABLET PO SCH (09:53)
[2021-07-18] MEDS: ASCORBIC ACID 500 MG TABLET PO SCH ×2 (09:53→21:15)
[2021-07-18] MEDS: ROSUVASTATIN 20 MG TABLET PO SCH (09:53)
[2021-07-18] MEDS: FERROUS SULFATE 325 MG TABLET PO SCH (09:53)
[2021-07-18] MEDS: CHLORHEXIDINE 0.12% ORAL RINSE 60 ML BOTTLE SWISH/SPIT SCH ×2 (09:54→21:15)
[2021-07-18] MEDS: METOPROLOL TARTRATE 25 MG TABLET PO SCH ×2 (09:54→21:15)
[2021-07-18] MEDS: LACTULOSE 20 GM/30 ML UDCUP PO PRN (10:19)
[2021-07-18] MEDS: POLYETHYLENE GLYCOL POWDER 17 GM PACK PO PRN (10:19)
[2021-07-18] MEDS: AMIODARONE 200 MG TABLET PO SCH ×2 (12:59→21:15)
[2021-07-18] MEDS: DILTIAZEM 60 MG TABLET PO SCH ×2 (12:59→18:16)
[2021-07-18] MEDS: AMIODARONE INJ 450 MG in DEXTROSE 5% 241 ML IV SCH (14:36)
[2021-07-19] MEDS: DILTIAZEM 60 MG TABLET PO SCH ×2 (00:17→05:00)
[2021-07-19] MEDS: AMIODARONE INJ 450 MG in DEXTROSE 5% 241 ML IV SCH (02:17)
[2021-07-19] MEDS: oxyCODONE/ACETAMINOPHEN 5-325 MG TABLET PO PRN ×2 (04:42→23:04)
[2021-07-19 05:24] LABS: Basophils % 0.1 % (0.0-0.8); Eosinophils % 0.1 % (0.00-10.9); Hematocrit 29.4 VOL% (42.0-52.0); Hemoglobin 9.5 GM/DL (14.0-18.0); Immature Granulocytes Absolute 0.17 #; Lymphocytes # 2.4 10*3/uL (1.4-4.0); Lymphocytes % 13.8 % (21.2-54.2); Mean Corpuscular HGB Conc 32.3 GM/DL (32-36); Mean Corpuscular Volume 92.2 FL (87-102); Mean Platelet Volume 10.2 FL (9.6-12.0); Monocytes % 8.3 % (1.7-12.7); NRBC # 0.04 10*3/uL; Neutrophils % 76.7 % (38.7-73.9); Platelet Count 147 T/CUMM (130-400); Red Blood Count 3.19 MC/CUMM (3.8-5.5); Red Cell Distribution Width 14.7 % (9.3-17.3)
[2021-07-19 05:48] LABS: Alanine Aminotransferase 45 U/L (16-61); Albumin 2.5 G/DL (3.4-5.0); Alkaline Phosphatase 50 U/L (45-117); Aspartate Amino Transferase 35 U/L (0-37); Bilirubin,Indirect 0.5 MG/DL (0.0-1.0); Blood Urea Nitrogen 21 MG/DL (7-18); Calcium 7.7 MG/DL (8.5-10.1); Carbon Dioxide 22 MMOL/L (21-32); Estimated Glom Filtration Rate 122 ML/MIN; Glucose 107 MG/DL (74-106); Osmolality,Calculated 272.1 MOS/KG (273-304); Potassium 3.6 MMOL/L (3.5-5.1); Sodium 135 MMOL/L (136-145); Total Protein 5.9 G/DL (6.4-8.2)
[2021-07-19] MEDS: METOPROLOL TARTRATE 25 MG TABLET PO SCH ×2 (10:04→20:54)
[2021-07-19] MEDS: ASCORBIC ACID 500 MG TABLET PO SCH ×2 (10:04→20:54)
[2021-07-19] MEDS: APIXABAN 5 MG TABLET PO SCH ×2 (10:04→20:53)
[2021-07-19] MEDS: POLYETHYLENE GLYCOL POWDER 17 GM PACK PO PRN (10:04)
[2021-07-19] MEDS: AMIODARONE 200 MG TABLET PO SCH ×2 (10:04→20:53)
[2021-07-19] MEDS: DOCUSATE SODIUM 100 MG CAPSULE PO SCH (10:04)
[2021-07-19] MEDS: ROSUVASTATIN 20 MG TABLET PO SCH (10:05)
[2021-07-19] MEDS: ASPIRIN EC 81 MG TABLET PO SCH (10:05)
[2021-07-19] MEDS: FERROUS SULFATE 325 MG TABLET PO SCH (10:05)
[2021-07-19] MEDS: PANTOPRAZOLE 40 MG TABLET PO SCH (10:05)
[2021-07-19] MEDS: LACTULOSE 20 GM/30 ML UDCUP PO PRN (10:05)
[2021-07-19] MEDS: CHLORHEXIDINE 0.12% ORAL RINSE 60 ML BOTTLE SWISH/SPIT SCH ×2 (10:07→23:05)
[2021-07-19] MEDS: POTASSIUM CHLORIDE 20 MEQ TABLET PO PRN ×2 (10:21→12:05)
[2021-07-19] MEDS ORDERED: DILTIAZEM 60 MG TABLET PO ONE (14:00)
[2021-07-19] MEDS: DILTIAZEM INJ 100 MG in SODIUM CHLORIDE 0.9% 100 ML IV SCH (14:06)
[2021-07-19] MEDS: buPROPion SR 150 MG TABLET PO SCH (20:54)
[2021-07-20 05:22] LABS: Calcium 7.6 MG/DL (8.5-10.1); Osmolality,Calculated 277.7 MOS/KG (273-304)
[2021-07-20] MEDS: oxyCODONE/ACETAMINOPHEN 5-325 MG TABLET PO PRN ×3 (05:34→20:09)
[2021-07-20] MEDS: DOCUSATE SODIUM 100 MG CAPSULE PO SCH (10:40)
[2021-07-20] MEDS: AMIODARONE 200 MG TABLET PO SCH ×2 (10:40→20:51)
[2021-07-20] MEDS: ASCORBIC ACID 500 MG TABLET PO SCH ×2 (10:41→20:51)
[2021-07-20] MEDS: APIXABAN 5 MG TABLET PO SCH ×2 (10:42→20:51)
[2021-07-20] MEDS: ASPIRIN EC 81 MG TABLET PO SCH (10:42)
[2021-07-20] MEDS: ROSUVASTATIN 20 MG TABLET PO SCH (10:43)
[2021-07-20] MEDS: buPROPion SR 150 MG TABLET PO SCH ×2 (10:43→20:51)
[2021-07-20] MEDS: PANTOPRAZOLE 40 MG TABLET PO SCH (10:43)
[2021-07-20] MEDS: FERROUS SULFATE 325 MG TABLET PO SCH (10:43)
[2021-07-20] MEDS: METOPROLOL TARTRATE 25 MG TABLET PO SCH ×2 (10:45→20:51)
[2021-07-20 11:35] LABS: Basophils % 0.1 % (0.2-1.0); Eosinophils # 0.1 # (0.0-0.70); Eosinophils % 0.8 % (0.0-10.0); Hematocrit 28.6 VOL% (42.0-52.0); Hemoglobin 9.2 GM/DL (14.0-18.0); Lymphocytes # 2.3 # (1.3-2.9); Lymphocytes % 16.4 % (20.5-45.5); Mean Corpuscular HGB Conc 32.2 GM/DL (32-36); Mean Corpuscular Volume 93.5 FL (80-94); Mean Platelet Volume 10.2 FL (7.4-10.4); Monocytes % 9.2 % (5.5-11.7); Neutrophils % 72.9 % (43.0-65.0); Platelet Count 177 T/CUMM (130-400); Red Blood Count 3.06 MC/CUMM (4.70-6.10); Red Cell Distribution Width 14.8 % (11.5-15.5); White Blood Count 14.3 T/CUMM (4.8-10.8)
[2021-07-20] MEDS: CHLORHEXIDINE 0.12% ORAL RINSE 60 ML BOTTLE SWISH/SPIT SCH ×2 (11:49→21:18)
[2021-07-20] MEDS: SPIRONOLACTONE 25 MG TABLET PO SCH (11:49)
[2021-07-21 05:47] LABS: Basophils % 0.1 % (0.0-0.8); Eosinophils # 0.2 10*3/uL (0.0-0.87); Eosinophils % 1.2 % (0.00-10.9); Hematocrit 28.3 VOL% (42.0-52.0); Immature Granulocytes Absolute 0.14 #; Lymphocytes # 2.5 10*3/uL (1.4-4.0); Lymphocytes % 18.1 % (21.2-54.2); Mean Corpuscular HGB Conc 31.8 GM/DL (32-36); Mean Corpuscular Volume 94.3 FL (87-102); Monocytes % 8.2 % (1.7-12.7); NRBC # 0.06 10*3/uL; Neutrophils % 71.4 % (38.7-73.9); Platelet Count 223 T/CUMM (130-400); Red Cell Distribution Width 14.6 % (9.3-17.3); White Blood Count 13.9 T/CUMM (4-12)
[2021-07-21 06:02] LABS: Alanine Aminotransferase 37 U/L (16-61); Albumin 2.4 G/DL (3.4-5.0); Alkaline Phosphatase 55 U/L (45-117); Aspartate Amino Transferase 17 U/L (0-37); Bilirubin,Indirect 0.4 MG/DL (0.0-1.0); Blood Urea Nitrogen 21 MG/DL (7-18); Calcium 8.4 MG/DL (8.5-10.1); Carbon Dioxide 24 MMOL/L (21-32); Estimated Glom Filtration Rate 127 ML/MIN; Glucose 96 MG/DL (74-106); Potassium 3.6 MMOL/L (3.5-5.1); Sodium 136 MMOL/L (136-145); Total Protein 5.9 G/DL (6.4-8.2)
[2021-07-21] MEDS: buPROPion SR 150 MG TABLET PO SCH ×2 (08:22→21:53)
[2021-07-21] MEDS: AMIODARONE 200 MG TABLET PO SCH ×2 (08:22→21:53)
[2021-07-21] MEDS: ASCORBIC ACID 500 MG TABLET PO SCH ×2 (08:22→21:52)
[2021-07-21] MEDS: ROSUVASTATIN 20 MG TABLET PO SCH (08:23)
[2021-07-21] MEDS: METOPROLOL TARTRATE 25 MG TABLET PO SCH ×2 (08:23→21:52)
[2021-07-21] MEDS: FERROUS SULFATE 325 MG TABLET PO SCH (08:23)
[2021-07-21] MEDS: ASPIRIN EC 81 MG TABLET PO SCH (08:23)
[2021-07-21] MEDS: PANTOPRAZOLE 40 MG TABLET PO SCH (08:23)
[2021-07-21] MEDS: SPIRONOLACTONE 25 MG TABLET PO SCH (08:23)
[2021-07-21] MEDS: APIXABAN 5 MG TABLET PO SCH ×2 (08:23→21:52)
[2021-07-21] MEDS: DOCUSATE SODIUM 100 MG CAPSULE PO SCH (08:23)
[2021-07-21] MEDS: CHLORHEXIDINE 0.12% ORAL RINSE 60 ML BOTTLE SWISH/SPIT SCH ×2 (08:25→21:54)
[2021-07-21] MEDS ORDERED: LIDOCAINE 2% 5 ML VIAL ONE (13:04)
[2021-07-21] MEDS ORDERED: propofoL 200 MG/20 ML VIAL IV ONE (13:05)
[2021-07-21] MEDS: oxyCODONE/ACETAMINOPHEN 5-325 MG TABLET PO PRN (21:53)
[2021-07-22 05:47] LABS: Basophils % 0.2 % (0.0-0.8); Eosinophils # 0.2 10*3/uL (0.0-0.87); Eosinophils % 1.3 % (0.00-10.9); Hemoglobin 8.5 GM/DL (14.0-18.0); Immature Granulocytes % 0.9 %; Immature Granulocytes Absolute 0.12 #; Lymphocytes # 2.2 10*3/uL (1.4-4.0); Mean Corpuscular HGB Conc 31.5 GM/DL (32-36); Mean Corpuscular Volume 95.1 FL (87-102); Mean Platelet Volume 9.7 FL (9.6-12.0); Monocytes % 8.2 % (1.7-12.7); NRBC # 0.02 10*3/uL; Neutrophils % 72.4 % (38.7-73.9); Platelet Count 238 T/CUMM (130-400); Red Blood Count 2.84 MC/CUMM (3.8-5.5); Red Cell Distribution Width 15.2 % (9.3-17.3); White Blood Count 12.9 T/CUMM (4-12)
[2021-07-22 06:01] LABS: Alanine Aminotransferase 35 U/L (16-61); Albumin 2.3 G/DL (3.4-5.0); Alkaline Phosphatase 62 U/L (45-117); Aspartate Amino Transferase 15 U/L (0-37); Blood Urea Nitrogen 16 MG/DL (7-18); Calcium 8.1 MG/DL (8.5-10.1); Carbon Dioxide 25 MMOL/L (21-32); Estimated Glom Filtration Rate 121 ML/MIN; Glucose 92 MG/DL (74-106); Osmolality,Calculated 273.8 MOS/KG (273-304); Potassium 3.7 MMOL/L (3.5-5.1); Sodium 137 MMOL/L (136-145); Total Protein 5.7 G/DL (6.4-8.2)
[2021-07-22] MEDS: buPROPion SR 150 MG TABLET PO SCH (09:00)
[2021-07-22] MEDS: ROSUVASTATIN 20 MG TABLET PO SCH (09:00)
[2021-07-22] MEDS ORDERED: SPIRONOLACTONE 25 MG TABLET PO SCH (09:00)
[2021-07-22] MEDS ORDERED: METOPROLOL SUCCINATE XL 25 MG TABLET PO SCH (09:00)
[2021-07-22] MEDS ORDERED: AMIODARONE 200 MG TABLET PO SCH (09:00)
[2021-07-22] MEDS: ASCORBIC ACID 500 MG TABLET PO SCH (09:00)
[2021-07-22] MEDS: FERROUS SULFATE 325 MG TABLET PO SCH (09:01)
[2021-07-22] MEDS: ASPIRIN EC 81 MG TABLET PO SCH (09:01)
[2021-07-22] MEDS: APIXABAN 5 MG TABLET PO SCH (09:01)
[2021-07-22] MEDS: DOCUSATE SODIUM 100 MG CAPSULE PO SCH (09:01)
[2021-07-22] MEDS: PANTOPRAZOLE 40 MG TABLET PO SCH (09:03)
[2021-07-22] MEDS: CHLORHEXIDINE 0.12% ORAL RINSE 60 ML BOTTLE SWISH/SPIT SCH (09:03)
[2021-07-22 11:50] VITALS: BP 107/61
== END 2021-07-22 12:34 | disposition home health service (06) | DRG 215 ==
LOC: EDUNIT# → EDBD → N.ED 03:17 → N.CC 04:00 → N.EDINP 05:31 → N.CC 05:48 → N.CVR 16:05 → N.ICU 07-16 17:59 → N.TELES 07-17 18:23
PROVIDERS: ADMIT Internal Medicine Cardiovascular Disease